=== PATIENT | female | born 1990 | race Caucasian/White ===

== ENCOUNTER → 2018-08-24 | Outpatient (CLI) | payer OTHER ==
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
== END | disposition home or self-care (01) ==
LOC: RADMRIMAIN 08:08
PROVIDERS: ATTEND Psychiatry & Neurology Neurology
DX: M41.82 Other forms of scoliosis, cervical region (principal); Z88.8 Allergy status to other drugs, medicaments and biological substances
CPT/HCPCS: 72141

== ENCOUNTER 2023-02-06 17:15 | Emergency (ER) | payer OTHER ==
[2023-02-06 17:24] VITALS: RESP 18; TEMP 98.1
[2023-02-06 17:34] VITALS: BP 114/74; PULSE 70
[2023-02-06] MEDS ORDERED: KETOROLAC 15 MG/ML 1 ML VIAL IM STA (17:40)
--- NOTE | 2023-02-06 17:46 | ED ---
Fall HPI - General Chief Complaint: Fall Stated Complaint: R arm injury Time Seen by Provider: 02/06/23 17:23 Source: patient, RN notes reviewed Mode of arrival: ambulatory Limitations: no limitations - History of Present Illness Initial Comments: This is a 32-year-old female who presents to the emergency department for a fall injury. Patient was carrying a laundry basket down the stairs, and about 4 steps from the bottom, she tripped and fell. She landed on her back and right arm. Currently having pain to the majority of the right arm. She is unsure if she hit her head or sustained any loss of consciousness, however she is fairly slow to respond. Her friend at bedside is unsure if this is related to a head injury or the pain. Denies any fevers, chills, sore throat, cough, dyspnea, chest pain, palpitations, abdominal pain, nausea, vomiting, diarrhea, or back pain. MD Complaint: fall - Related Data Home Medications Medication Instructions Recorded Confirmed HYDROcodone/APAP 10-325MG [[place] 1 each PO Q6H PRN 10/19/14 10/19/14 10] diazePAM 10 mg PO TID 10/19/14 10/19/14 Previous Rx's Medication Instructions Recorded Ibuprofen [Motrin] 600 mg PO Q6HR PRN #40 day 10/19/14 Ibuprofen [Motrin] 800 mg PO Q8H PRN #30 tab 02/06/23 Allergies Allergy/AdvReac Type Severity Reaction Status Date / Time aspirin AdvReac Nausea & Verified 02/06/23 17:22 Vomiting Review of Systems ROS Statement: Those systems with pertinent positive or pertinent negative responses have been documented in the HPI. ROS Other: All systems not noted in ROS Statement are negative. Past Medical History Past Medical History: Fibromyalgia History of Any Multi-Drug Resistant Organisms: None Reported Past Surgical History: No Surgical Hx Reported Past Psychological History: No Psychological Hx Reported Smoking Status: Never smoker Past Alcohol Use History: None Reported Past Drug Use History: None Reported General Exam Limitations: no limitations General appearance: alert, in no apparent distress Head exam: Present: atraumatic, normocephalic, normal inspection Eye exam: Present: normal appearance, PERRL, EOMI. Absent: scleral icterus, conjunctival injection, periorbital swelling Respiratory exam: Present: normal lung sounds bilaterally. Absent: respiratory distress, wheezes, rales, rhonchi, stridor Cardiovascular Exam: Present: regular rate, normal rhythm, normal heart sounds. Absent: systolic murmur, diastolic murmur, rubs, gallop, clicks Extremities exam: Present: other (Tenderness to palpation over the right wrist and right shoulder. No overlying deformities. Limited range of motion secondary to pain. 2+ radial pulses. Capillary refill less than 1 second.) Neurological exam: Present: alert, oriented X3, CN II-XII intact Psychiatric exam: Present: normal affect, normal mood Course Vital Signs 02/06/23 02/06/23 17:18 17:30 Temperature 98.1 F Pulse Rate 74 70 Respiratory 18 Rate Blood Pressure 138/78 114/74 O2 Sat by Pulse 100 99 Oximetry Medical Decision Making - Medical Decision Making This is a 32-year-old female who presents to the emergency department for right arm pain after a fall. Was pt. sent in by a medical professional or institution? @ -No Did you speak to anyone other than the patient for history? @ -No Did you review nursing and triage notes? @ -Yes, and I agree, it is accurate with regards to the patient's symptoms. Were old charts reviewed? @ -No Differential Diagnosis? @ -Differential Arm Pain/Injury: Fracture, dislocation, contusion, sprain, this is not meant to be an all- inclusive list. EKG interpreted by me (3pts min.)? @ -Not obtained X-rays interpreted by me (1pt min.)? @ -X-ray of the right shoulder, humerus, forearm, and wrist obtained. My interpretation identifies no acute fractures. CT interpreted by me (1pt min.)? @ -Computed tomography scan of the brain and c-spine obtained. My interpr etation identifies no evidence of an acute intracranial hemorrhage, skull fracture, or cervical spine fracture. U/S interpreted by me (1pt. min.)? @ -Not obtained What testing was considered but not performed? (CT, X-rays, U/S, labs)? Why? @ -Not obtained What meds were considered but not given? Why? @ -None Did you discuss the management of the patient with other professionals? @ -No Did you reconcile home meds? @ -No Was smoking cessation discussed for >3mins.? @ -No Was critical care preformed (if so, how long)? @ -No Were there social determinants of health that impacted care today? How? (Homelessness, low income, unemployed, alcoholism, drug addiction, transportation, low edu. Level, literacy, decrease access to med. care, detention, rehab)? @ -No Was there de-escalation of care discussed even if they declined? (Discuss DNR or withdrawal of care, Hospice)? @ -No What co-morbidities impacted this encounter? (DM, HTN, Smoking, COPD, CAD, Cancer, CVA, Hep., AIDS, mental health diagnosis, sleep apnea, morbid obesity)? @ -Fibromyalgia Was patient admitted / discharged? @ -Discharged. X-ray of the right shoulder, humerus, forearm, and wrist obtained revealing no acute process. Given her somewhat confused state and possible head injury, computed tomography scan of the brain and C-spine were obtained as well. This also revealed no acute process. Her pain was controlled in the emergency department. Prescription for ibuprofen provided with dosing instructions reviewed. Advised taking this with Tylenol and applying ice to the painful areas for 15-20 minutes every 2-3 hours. Discussed that she can use an Messi bandage as needed for additional support and her wrist was bandaged prior to discharge. Otherwise advised follow up with her primary care provider. Undiagnosed new problem with uncertain prognosis? @ -None Drug Therapy requiring intensive monitoring for toxicity (Heparin, Nitro, Insulin, Cardizem)? @ -None Were any procedures done? @ -None Diagnosis/symptom? @ -Fall, right arm pain Acute, or Chronic, or Acute on Chronic? @ -Acute Uncomplicated (without systemic symptoms) or Complicated (systemic symptoms)? @ -Uncomplicated Side effects of treatment? @ -None Exacerbation, Progression, or Severe Exacerbation] @ -Not applicable Poses a threat to life or bodily function? @ -No Return precautions reviewed in depth, the patient is instructed to return to the emergency department with any new, worsening, or concerning symptoms. Patient verbalized understanding. This case was discussed in detail with the attending ED physician, Dr. Prinec. Presentation, findings, and treatment plan discussed in detail as well. - Radiology Data Radiology results: report reviewed, image reviewed Disposition Clinical Impression: Fall, Right wrist sprain Disposition: HOME SELF-CARE Instructions (If sedation given, give patient instructions): Wrist Sprain (ED) Additional Instructions: Return to the emergency department with any new, worsening, or concerning symptoms. Alternate with ibuprofen and Tylenol as needed for pain relief. Apply ice for 15-20 minutes every 2-3 hours. Follow up with your primary care provider in 1-2 days. Prescriptions: Ibuprofen [Motrin] 800 mg PO Q8H PRN #30 tab PRN Reason: Pain Is patient prescribed a controlled substance at d/c from ED?: No Referrals: Ugo Henley [Primary Care Provider] - 1-2 days
--- NOTE | 2023-02-06 17:54 | XR ---
EXAMINATION TYPE: XR shoulder complete RT, XR humerus RT DATE OF EXAM: 02/06/2023 CLINICAL HISTORY: Pain after fall. TECHNIQUE: Three views of the right shoulder are obtained. 2 views of right humerus. COMPARISON: None. FINDINGS: There is no acute fracture/dislocation evident in the right shoulder. The acromioclavicul ar and glenohumeral joint spaces appear within normal limits. The visualized ribs are intact and unr emarkable. No acute displaced fracture in the right humerus. Overlying clothing or blanket material is seen. IMPRESSION: There is no acute fracture or dislocation in the right humerus or shoulder.
--- NOTE | 2023-02-06 18:01 | XR ---
EXAMINATION TYPE: XR forearm RT, XR wrist complete RT DATE OF EXAM: 02/06/2023 CLINICAL HISTORY: Pain after fall TECHNIQUE: Two views of the right forearm are obtained. 4 views right wrist. COMPARISON: None. FINDINGS: There is no acute fracture or dislocation seen in the right radius or ulna. Right elbow migdalia int appears within normal limits. The overlying soft tissue appears within normal limits. No acute displaced fracture in the right wrist. The carpal joint spaces are maintained. Overlying sof t tissues are unremarkable. IMPRESSION: There is no acute fracture or dislocation seen in the right wrist or forearm.
--- NOTE | 2023-02-06 18:28 | CT ---
EXAMINATION TYPE: CT brain samir mcclure con DATE OF EXAM: 02/06/2023 COMPARISON: 10/19/2014 HISTORY: fell down 3-[address] DLP: 1221.4 mGycm Automated exposure control for dose reduction was used. TECHNIQUE: CT scan of the head and cervical spine are performed without contrast. FINDINGS: There is no acute intracranial hemorrhage, mass effect, or midline shift identified. The ventricles and sulci are within normal limits in size. Changes of chronic sinusitis. Cervical spine is visualized in its entirety from C1 through upper thoracic levels and demonstrates s atisfactory alignment without evidence of acute fracture or dislocation. Prevertebral soft tissue ap pears within normal limits. The C1-C2 articulation is unremarkable. Emphysematous changes involving the lung apices. IMPRESSION: 1. There is no acute fracture or dislocation evident in the cervical spine. 2. No acute intracranial hemorrhage, mass effect, or midline shift is seen.
[2023-02-06] MEDS ORDERED: ACET/COD 300 MG/30 MG STARTER PACK 6 TAB BTL PO STA (19:01)
[2023-02-06] MEDS ORDERED: MORPHINE SULFATE 2 MG/ML SYRINGE IM STA (19:01)
[2023-02-06] MEDS ORDERED: IBUPROFEN 600 MG STARTER PACK 4 TAB BTL PO STA (19:01)
== END 2023-02-06 19:18 | disposition home or self-care (01) ==
LOC: EC 17:15
DX: S63.501A Unspecified sprain of right wrist, initial encounter (principal); Z88.6 Allergy status to analgesic agent; W10.9XXA Fall (on) (from) unspecified stairs and steps, initial encounter
CPT/HCPCS: 73030; 73060; 73090; 73110; 72125; 70450; 99284; 96372; J1885

== ENCOUNTER 2024-01-20 22:17 | Emergency (ER) | payer OTHER ==
[2024-01-20 22:22] VITALS: TEMP 97.8
--- NOTE | 2024-01-20 22:26 | ED ---
Lower Extremity Injury HPI - General Chief Complaint: Extremity Injury, Lower Stated Complaint: rt lower ext injury Time Seen by Provider: 01/20/24 22:26 Source: patient, RN notes reviewed Mode of arrival: ambulatory Limitations: no limitations - History of Present Illness Initial Comments: 33-year-old female presents emergency department chief complaint of right ankle pain. Patient states that she was to get the trash this evening when she rolled her right ankle and felt a "popping sensation "patient denies other bony injuries or previous surgeries of the right ankle. Patient denies paresthesias. States that she has not attempted to ambulate after the injury has occurred. No other acute complaints at this time. - Related Data Home Medications Medication Instructions Recorded Confirmed HYDROcodone/APAP 10-325MG [[place] 1 each PO Q6H PRN 10/19/14 10/19/14 10] diazePAM 10 mg PO TID 10/19/14 10/19/14 Previous Rx's Medication Instructions Recorded Ibuprofen [Motrin] 600 mg PO Q6HR PRN #40 day 10/19/14 Ibuprofen [Motrin] 800 mg PO Q8H PRN #30 tab 02/06/23 Allergies Allergy/AdvReac Type Severity Reaction Status Date / Time aspirin AdvReac Nausea & Verified 01/20/24 22:22 Vomiting Review of Systems ROS Statement: Those systems with pertinent positive or pertinent negative responses have been documented in the HPI. ROS Other: All systems not noted in ROS Statement are negative. Past Medical History Past Medical History: Fibromyalgia History of Any Multi-Drug Resistant Organisms: None Reported Past Surgical History: No Surgical Hx Reported Past Psychological History: No Psychological Hx Reported Smoking Status: Never smoker Past Alcohol Use History: None Reported Past Drug Use History: None Reported General Exam Limitations: no limitations General appearance: alert, in no apparent distress, cachectic Head exam: Present: atraumatic, normocephalic, normal inspection Eye exam: Present: normal appearance, PERRL, EOMI. Absent: scleral icterus, conjunctival injection, periorbital swelling ENT exam: Present: normal exam, mucous membranes moist Neck exam: Present: normal inspection. Absent: tenderness, meningismus, lymphadenopathy Respiratory exam: Present: normal lung sounds bilaterally. Absent: respiratory distress, wheezes, rales, rhonchi, stridor Cardiovascular Exam: Present: regular rate, normal rhythm, normal heart sounds. Absent: systolic murmur, diastolic murmur, rubs, gallop, clicks GI/Abdominal exam: Present: soft, normal bowel sounds. Absent: distended, tenderness, guarding, rebound, rigid Right Ankle exam: Present: normal inspection, full ROM, tenderness (lateral). Absent: swelling, laceration Neurovascular tendon exam: Present: no vascular compromise. Absent: pulse deficit Gait: observed and normal Back exam: Present: normal inspection Skin exam: Present: warm, dry, intact, normal color. Absent: rash Course Vital Signs 01/20/24 01/20/24 22:19 23:36 Temperature 97.8 F 97.8 F Pulse Rate 95 78 Respiratory 16 18 Rate Blood Pressure 125/75 115/79 O2 Sat by Pulse 100 96 Oximetry Medical Decision Making - Medical Decision Making Was pt. sent in by a medical professional or institution (Dr. PA, YARDAGE ESTIMATOR, urgent care, hospital, or detention...) When possible be specific @ -No Did you speak to anyone other than the patient for history (EMS, parent, family, police, friend...)? What history was obtained from this source @ -No Did you review nursing and triage notes (agree or disagree)? Why? @ -I reviewed and agree with nursing and triage notes Were old charts reviewed (outside hosp., previous admission, EMS record, old EKG, old radiological studies, urgent care reports/EKG's, detention records)? Report findings @ -No old charts were reviewed Differential Diagnosis (chest pain, altered mental status, abdominal pain women, abdominal pain men, vaginal bleeding, weakness, fever, dyspnea, syncope, headache, dizziness, GI bleed, back pain, seizure, CVA, palpatations, mental health, musculoskeletal)? @ -Differential Musculoskeletal Muscular strain, contusion, ligament sprain, fracture, arthritis, septic arthritis, bursitis, cellulitis, muscle spasm, nerve compression, DVT, arterial occlusion, herpes zoster, electrolyte abnormality, tumor.... This is not meant to be in all inclusive list EKG interpreted by me (3pts min.). @ -none X-rays interpreted by me (1pt min.). @ -X-ray of the right ankle no acute bony abnormalities noted CT interpreted by me (1pt min.). @ -None done U/S interpreted by me (1pt. min.). @ -None done What testing was considered but not performed or refused? (CT, X-rays, U/S, labs)? Why? @ -None What meds were considered but not given or refused? Why? @ -None Did you discuss the management of the patient with other professionals (professionals i.e. , PA, YARDAGE ESTIMATOR, lab, RT, psych nurse, social worker psychiatric, bdr, teacher, licensed loan officer assistant, caser in)? Give summary @ -No Was smoking cessation discussed for >3mins.? @ -No Was critical care preformed (if so, how long)? @ -No Were there social determinants of health that impacted care today? How? (Homelessness, low income, unemployed, alcoholism, drug addiction, transportation, low edu. Level, literacy, decrease access to med. care, skilled nursing, rehab)? @ -No Was there de-escalation of care discussed even if they declined (Discuss DNR or withdrawal of care, Hospice)? DNR status @ -No What co-morbidities impacted this encounter? (DM, HTN, Smoking, COPD, CAD, Cancer, CVA, ARF, Chemo, Hep., AIDS, mental health diagnosis, sleep apnea, morbid obesity)? @ -None Was patient admitted / discharged? Hospital course, mention meds given and route, prescriptions, significant lab abnormalities, going to OR and other pertinent info. @ -Discharge. 33-year-old female with right ankle pain. On examination patient is noted to have full range of motion of the right ankle with 2+ pedal pulse. There is mild pain to palpation over the right lateral ankle. Patient is able to bear weight. X-rays negative for acute process. Patient is provided with Motrin emergency department and Messi wrap applied over the right ankle. All questions answered at bedside and strict return parameters bernabe the patient is verbalized understanding. Recommend to continue rest, ice, elevation and cycling Tylenol Motrin. Discussed with Dr. Kothari Undiagnosed new problem with uncertain prognosis? @ -No Drug Therapy requiring intensive monitoring for toxicity (Heparin, Nitro, Insulin, Cardizem)? @ -No Were any procedures done? @ -No Diagnosis/symptom? @ -Right ankle sprain Acute, or Chronic, or Acute on Chronic? @ -Acute Uncomplicated (without systemic symptoms) or Complicated (systemic symptoms)? @ -Uncomplicated Side effects of treatment? @ -No Exacerbation, Progression, or Severe Exacerbation? @ -No Poses a threat to life or bodily function? How? (Chest pain, [place], [place], pneumonia, PE, COPD, DKA, ARF, appy, cholecystitis, CVA, Diverticulitis, Homicidal, S uicidal, threat to staff... and all critical care pts) @ -No Disposition Clinical Impression: Right ankle sprain Disposition: HOME SELF-CARE Condition: Good Instructions (If sedation given, give patient instructions): Ankle Sprain (ED) Additional Instructions: Return to the emergency department for any new or worsening symptoms. Continue to rest, ice, elevate and use compression of the right ankle. Is patient prescribed a controlled substance at d/c from ED?: No Referrals: None,Stated [Primary Care Provider] - 1-2 days Time of Disposition: 23:08
[2024-01-20] MEDS: IBUPROFEN 600 MG TAB PO STA (22:44)
--- NOTE | 2024-01-20 22:50 | XR ---
EXAMINATION TYPE: XR ankle complete RT DATE OF EXAM: 01/20/2024 CLINICAL HISTORY: Injury with pain TECHNIQUE: Frontal, lateral and oblique images of the right ankle are obtained. COMPARISON: None. FINDINGS: There is no acute fracture/dislocation evident in the right ankle. The ankle mortise appe ars within normal limits. The overlying soft tissue appears unremarkable. IMPRESSION: There is no acute fracture or dislocation in the right ankle.
[2024-01-20 23:36] VITALS: BP 115/79; PULSE 78; RESP 18
== END 2024-01-20 23:52 | disposition home or self-care (01) ==
LOC: EC 22:17
CPT/HCPCS: 99283

== ENCOUNTER 2024-01-29 15:48 | Emergency (ER) | payer OTHER ==
[2024-01-29 15:57] VITALS: BP 120/81; PULSE 90; RESP 18; TEMP 97.6
[2024-01-29] MEDS: CYCLOBENZAPRINE 10 MG TAB PO STA (16:45)
--- NOTE | 2024-01-29 16:54 | ED ---
Back Pain HPI - General Chief Complaint: Back Pain/Injury Stated Complaint: back pain Time Seen by Provider: 01/29/24 16:53 Source: patient, RN notes reviewed Limitations: no limitations - History of Present Illness Initial Comments: 33-year-old female presenting for back injury 1 hour ago. Patient states she was hit in the middle of the back by a slamming door. Patient felt immediate pain in the middle of the thoracic area of the back. Patient has been able to ambulate since. Patient took both ibuprofen and Tylenol prior to arrival. Denies other injuries. Did not hit head. Does have a history of Marfan syndrome and scoliosis. Denies numbness, tingling, or weakness in the legs. Denies bowel or bladder incontinence. - Related Data Home Medications Medication Instructions Recorded Confirmed HYDROcodone/APAP 10-325MG [[place] 1 each PO Q6H PRN 10/19/14 10/19/14 10] diazePAM 10 mg PO TID 10/19/14 10/19/14 Previous Rx's Medication Instructions Recorded Ibuprofen [Motrin] 600 mg PO Q6HR PRN #40 day 10/19/14 Ibuprofen [Motrin] 800 mg PO Q8H PRN #30 tab 02/06/23 Allergies Allergy/AdvReac Type Severity Reaction Status Date / Time aspirin AdvReac Nausea & Verified 01/29/24 15:57 Vomiting Review of Systems ROS Statement: Those systems with pertinent positive or pertinent negative responses have been documented in the HPI. ROS Other: All systems not noted in ROS Statement are negative. Past Medical History Past Medical History: Fibromyalgia History of Any Multi-Drug Resistant Organisms: None Reported Past Surgical History: No Surgical Hx Reported Past Psychological History: No Psychological Hx Reported Smoking Status: Never smoker Past Alcohol Use History: None Reported Past Drug Use History: None Reported General Exam Limitations: no limitations General appearance: alert, in no apparent distress Head exam: Present: atraumatic, normocephalic, normal inspection Neck exam: Present: normal inspection. Absent: tenderness, meningismus, lymphadenopathy Respiratory exam: Present: normal lung sounds bilaterally. Absent: respiratory distress, wheezes, rales, rhonchi, stridor Cardiovascular Exam: Present: regular rate, normal rhythm, normal heart sounds. Absent: systolic murmur, diastolic murmur, rubs, gallop, clicks GI/Abdominal exam: Present: soft, normal bowel sounds. Absent: distended, tenderness, guarding, rebound, rigid Back exam: Present: normal inspection, full ROM. Absent: tenderness (No point tenderness to palpation), CVA tenderness (R), CVA tenderness (L), paraspinal tenderness, rash noted Neurological exam: Present: alert, oriented X3 Psychiatric exam: Present: normal affect, normal mood Skin exam: Present: warm, dry, intact, normal color. Absent: rash Course Vital Signs 01/29/24 15:54 Temperature 97.6 F Pulse Rate 90 Respiratory 18 Rate Blood Pressure 120/81 O2 Sat by Pulse 99 Oximetry Medical Decision Making - Medical Decision Making Was pt. sent in by a medical professional or institution (, PA, GLOBAL POSITION SYSTEM TECHNICIAN, urgent care, hospital, or half-way...) When possible be specific @ -No Did you speak to anyone other than the patient for history (EMS, parent, family, police, friend...)? What history was obtained from this source @ -No Did you review nursing and triage notes (agree or disagree)? Why? @ -I reviewed and agree with nursing and triage notes Were old charts reviewed (outside hosp., previous admission, EMS record, old EKG , old radiological studies, urgent care reports/EKG's, half-way records)? Report findings @ -No old charts were reviewed Differential Diagnosis (chest pain, altered mental status, abdominal pain women, abdominal pain men, vaginal bleeding, weakness, fever, dyspnea, syncope, headache, dizziness, GI bleed, back pain, seizure, CVA, palpatations, mental health, musculoskeletal)? @ -Differential Musculoskeletal Muscular strain, contusion, ligament sprain, fracture, arthritis, septic arthritis, bursitis, cellulitis, muscle spasm, nerve compression, DVT, arterial occlusion, herpes zoster, electrolyte abnormality, tumor.... This is not meant to be in all inclusive list EKG interpreted by me (3pts min.). @ -None X-rays interpreted by me (1pt min.). @ -X-ray of thoracic spine reveals no acute process CT interpreted by me (1pt min.). @ -None done U/S interpreted by me (1pt. min.). @ -None done What testing was considered but not performed or refused? (CT, X-rays, U/S, labs)? Why? @ -None What meds were considered but not given or refused? Why? @ -None Did you discuss the management of the patient with other professionals (professionals i.e. Dr., PA, GLOBAL POSITION SYSTEM TECHNICIAN, lab, RT, psych nurse, social work lecturer, seo expert, teacher, code enforcement officer, bottle caser)? Give summary @ -No Was smoking cessation discussed for >3mins.? @ -No Was critical care preformed (if so, how long)? @ -No Were there social determinants of health that impacted care today? How? (Homelessness, low income, unemployed, alcoholism, drug addiction, transportation, low edu. Level, literacy, decrease access to med. care, snf, rehab)? @ -No Was there de-escalation of care discussed even if they declined (Discuss DNR or withdrawal of care, Hospice)? DNR status @ -No What co-morbidities impacted this encounter? (DM, HTN, Smoking, COPD, CAD, Cancer, CVA, ARF, Chemo, Hep., AIDS, mental health diagnosis, sleep apnea, morbid obesity)? @ -None Was patient admitted / discharged? Hospital course, mention meds given and route, prescriptions, significant lab abnormalities, going to OR and other pertinent info. @ -Patient was discharged. Patient was seen and evaluated for back injury prior to arrival. States she was hit by a closing door in the mid back. No other injuries. No obvious skin changes or point tenderness. Neurovascularly intact. Patient was given Flexeril. X-ray thoracic spine revealed no acute process. Discussed diagnosis of contusion of mid back with patient. Supportive care discussed, return precautions discussed and patient is agreeable to plan. Patient discharged with analgesics. Case was discussed with my ED attending Dr. Jimenes. Patient discharged in stable condition. Undiagnosed new problem with uncertain prognosis? @ -No Drug Therapy requiring intensive monitoring for toxicity (Heparin, Nitro, Insulin, Cardizem)? @ -No Were any procedures done? @ -No Diagnosis/symptom? @ -Contusion of mid back Acute, or Chronic, or Acute on Chronic? @ -Acute Uncomplicated (without systemic symptoms) or Complicated (systemic symptoms)? @ -Uncomplicated Side effects of treatment? @ -No Exacerbation, Progression, or Severe Exacerbation? @ -No Poses a threat to life or bodily function? How? (Chest pain, [place], [place], pneumonia, PE, COPD, DKA, ARF, appy, cholecystitis, CVA, Diverticulitis, Homicidal, Suicidal, threat to staff... and all critical care pts) @ -No Disposition Clinical Impression: Contusion of mid back Disposition: HOME SELF-CARE Condition: Stable Additional Instructions: Please return to the Emergency Department if symptoms worsen or any other concerns. Is patient prescribed a controlled substance at d/c from ED?: No Referrals: None,Stated [Primary Care Provider] - 1-2 days Time of Disposition: 18:11
--- NOTE | 2024-01-29 17:21 | XR ---
Thoracic spine HISTORY: Pain findings. COMPARISON: None. TECHNIQUE: 3 views of the thoracic spine were obtained. FINDINGS: The thoracic vertebral segments are normal in height and alignment and there is no fracture. The disc spaces are well maintained. The paraspinal soft tissue is unremarkable. There is mild levoscoliosis of the thoracic spine. IMPRESSION: 1. No evidence of thoracic spine trauma. 2. Mild levoscoliosis.
[2024-01-29] MEDS: ACET/COD 300 MG/30 MG STARTER PACK 6 TAB BTL PO STA (18:14)
== END 2024-01-29 18:16 | disposition home or self-care (01) ==
LOC: EC 15:48
CPT/HCPCS: 72072; 99283